=== PATIENT | female | born 1950 | race Caucasian/White ===

== ENCOUNTER 2017-12-14 10:56 | Day surgery (SDC) | payer MEDICARE, BC ==
[~2017-12-14] VITALS: Ht 170.2 cm; Wt 68.8 kg
[~2017-12-14 10:56] MED LIST: ASPIRIN 81M81 MG/TA2 PO; CALCIUM + D 6001 TA1 PO; CIPRO 500MG TA500 MG PO; CLARITIN 1010 MG/TAB; DYAZIDE 25 MG-31 CAP PO; MEVACOR40 MG PO; PRILOSEC 20MG20 MG PO; PRINZIDE 12.5 M1 TAB PO; ZITHROMAX Z PA250 MG PO
[2017-12-14] MEDS ORDERED: COZAAR 25MG25 MG/TAB PO (11:27)
[2017-12-14] MEDS ORDERED: FOSAMAX 70MG TA70 MG PO (11:29)
[2017-12-14] MEDS ORDERED: HCTZ12.5TAB PO (11:29)
[2017-12-14 11:49] VITALS: BP 130/84; PULSE 66; TEMP 97.5
[2017-12-14 13:08] VITALS: BP 114/66; PULSE 61
[2017-12-14 13:13] VITALS: BP 127/60; PULSE 56
[2017-12-14 13:28] VITALS: BP 123/64; PULSE 60
[2017-12-14 13:43] VITALS: BP 116/68; PULSE 57
[2017-12-14 14:36] VITALS: BP 153/87; PULSE 69
== END 2017-12-14 13:55 | disposition home or self-care (01) ==
LOC: SDCO 10:56
DX: D12.5 Benign neoplasm of sigmoid colon (principal); Z85.3 Personal history of malignant neoplasm of breast; Z92.3 Personal history of irradiation; K21.9 Gastro-esophageal reflux disease without esophagitis; I10 Essential (primary) hypertension; Z79.899 Other long term (current) drug therapy; Z87.891 Personal history of nicotine dependence
CPT/HCPCS: J2405; J2704; J7030

== ENCOUNTER 2020-05-16 09:31 | Day surgery (SDC) | payer MEDICARE, BC ==
[~2020-05-16] VITALS: Ht 170.2 cm; Wt 61.5 kg
[~2020-05-16 09:31] MED LIST changes: +ASPIRIN E.C. 8181 MG PO; +B-121000 MCG PO; +COZAAR 25MG25 MG/TAB PO; +DITROPAN XL 5MG5 M1 PO; +FOSAMAX 70MG TA70 MG PO; +HCTZ12.5TAB PO; +OMEGA-31 SGL PO; +TEMOVATE0.05% TP; +TRIAMC 0.025 454 TOP
[2020-05-16 10:44] VITALS: BP 134/79; PULSE 73; TEMP 96.9
[2020-05-16] MEDS ORDERED: FISH OIL 500 M1 EAC1 PO (10:54)
[2020-05-16] MEDS ORDERED: THE MEDICINE S200 M2 PO (10:58)
[2020-05-16] MEDS ORDERED: CRANBERRY500 M3 PO (10:59)
[2020-05-16 11:11] VITALS: BP 127/64; PULSE 67
[2020-05-16 11:15] VITALS: BP 129/71; PULSE 65
[2020-05-16 11:30] VITALS: BP 125/101; PULSE 51
--- NOTE | 2020-05-16 11:39 | NUR ---
pt returned from endo proceduire room into bay#6. Pt alert and orientated, ambulated x1 assist. pt states, 'slightly nauseated'. requested apple juice, a blueberry muffin, pamela crackers and water. lungs clear, Hrr with some irregularity at times. rates nausea at a 5 on a 0-10 scale. will monitor.
--- NOTE | 2020-05-16 11:44 | NUR ---
PT STATES NAUSEA. WILL GIVE IV ORDERED ZOFRAN. WILL CONT TO MONITOR.
--- NOTE | 2020-05-16 11:46 | NUR ---
PT STATES NAUSEA IS GETTING WORSE, IV ZOFRAN GIVEN PER DR ORDERS. PT DENIES PAIN. ALERT AND ORIENTATED. HRR IN THE 40'S REGULAR AND DEANGELO. PT ALERT AND ORIENTATED. AT BEDSIDE. PT STARTING TO EAT BLUEBERRY MUFFIN AND STATES 'FEELING BETTER ZOFRAN IS INFUSING. WILL CONT TO MONITOR.
[2020-05-16 11:48] VITALS: BP 108/63; PULSE 54
--- NOTE | 2020-05-16 11:49 | NUR ---
PT TAKING PO'S. PT REFUSED THE APPLE JUICE, IS DRINKING WATER WITHOUT DIFFICULTY. ATE BLUEBERRRY MUFFIN AND DENIES NAUSEA AT THIS TIME. HR CONTINUES TO BE IN BRADYCARDIA AT 56. PT ALAERT AND ORIENTATED. NS CONTINUES TO INFUSE WITHOUT DIFFICULTY. WILL CONTINUE TO MONITOR.
[2020-05-16 12:18] VITALS: BP 106/58; PULSE 63; TEMP 97.9
--- NOTE | 2020-05-16 12:19 | NUR ---
PT TOLERATING WATER AND AGATA CRACKERS. DENIES NAUSEA OR PAIN AT THIS TIME. A/OX3. AT BEDSIDE. #20 DC'D TO RIGHT WRIST. PT TOLERATED WELL. WILL PLAN FOR DISCHARGE.
--- NOTE | 2020-05-16 12:30 | NUR ---
PATIENT DRESSED IN STREET CLOTHES. DISCHARGE INSTRUCTIONS GIVEN VERBAL AND DISCHARGE PACKET PROVIDED. QUESTIONS ANSWERED. PATIENT AND VOICED UNDERSTANDING. DISCHARGED PER WHEEL CHAIR ACCOMPANIED BY RN TO PRIVATE VECHILE DRIVEN BY .
== END 2020-05-16 12:35 | disposition home or self-care (01) ==
LOC: SDCO 09:31
DX: Z12.11 Encounter for screening for malignant neoplasm of colon (principal); K63.5 Polyp of colon; I10 Essential (primary) hypertension; E78.5 Hyperlipidemia, unspecified; K21.9 Gastro-esophageal reflux disease without esophagitis; Z86.010 Personal history of colon polyps; Z79.82 Long term (current) use of aspirin; Z79.899 Other long term (current) drug therapy; Z92.21 Personal history of antineoplastic chemotherapy; Z85.3 Personal history of malignant neoplasm of breast; Z88.8 Allergy status to other drugs, medicaments and biological substances
CPT/HCPCS: J2405; J2704; J7030

== ENCOUNTER 2021-08-21 09:35 | Day surgery (SDC) | payer MEDICARE, BC ==
[~2021-08-21] VITALS: Ht 170.2 cm; Wt 52.3 kg
[~2021-08-21 09:35] MED LIST changes: +CRANBERRY500 M3 PO; +FISH OIL 500 M1 EAC1 PO; +THE MEDICINE S200 M2 PO
[2021-08-21] MEDS ORDERED: NEURONTIN100 MG/CAP PO (11:12)
[2021-08-21] MEDS ORDERED: FOSAMAX 70MG TA70 MG PO (11:12)
[2021-08-21] MEDS ORDERED: CLARITIN LIQUI-10 MG PO (11:13)
[2021-08-21] MEDS ORDERED: potassium PO (11:13)
[2021-08-21] MEDS ORDERED: MASON NATURAL2000 IU PO (11:14)
[2021-08-21] MEDS ORDERED: MELATIN 3 MG-11 TAB PO (11:14)
[2021-08-21 11:15] VITALS: BP 120/76; PULSE 67; TEMP 97.5
[2021-08-21 12:20] VITALS: BP 111/72; PULSE 51; TEMP 97.4
--- NOTE | 2021-08-21 12:20 | NUR ---
PATIENT BACK TO ROOM 5 VIA CART. ASSIST X 1 TO CHAIR. DAUGHTER AT BEDSIDE. VITAL SIGNS WNL. PATIENT REQUESTS APPLE JUICE AND A MUFFIN. WILL CONTINUE TO MONITOR.
[2021-08-21 12:35] VITALS: BP 109/72; PULSE 46
--- NOTE | 2021-08-21 12:35 | NUR ---
PATIENT IS ALERT AND ORIENTED. SHE TOLERATED MUFFIN AND JUICE WELL. DENIES ANY NAUSEA OR PAIN. VITAL SIGNS WNL. WILL CONTINUE TO MONITOR.
[2021-08-21 12:50] VITALS: BP 109/72; PULSE 46
--- NOTE | 2021-08-21 12:50 | NUR ---
PATIENT IS READY FOR DISCHARGE. PORT DE-ACCESSED. DOCTOR AT BEDSIDE. LAST SET OF VITALS WNL. DISCHARGE INSTRUCTIONS REVIEWED. WILL DISCHARGE ONCE SHE IS DRESSED.
== END 2021-08-21 13:16 | disposition home or self-care (01) ==
LOC: SDCO 09:35
DX: Z12.11 Encounter for screening for malignant neoplasm of colon (principal); K51.40 Inflammatory polyps of colon without complications; Z85.038 Personal history of other malignant neoplasm of large intestine; Z98.0 Intestinal bypass and anastomosis status
CPT/HCPCS: J2405; J2704; J7120